=== PATIENT | male | born 1990 | race Caucasian/White ===

== ENCOUNTER 2018-03-19 18:15 | Inpatient (IN) | payer BC ==
[~2018-03-19] VITALS: Ht 180.3 cm; Wt 86.6 kg
[2018-03-19 19:21] LABS: APPEARANCE SL.HAZY ((CLEAR)); BILIRUBIN NEGATIVE; BLOOD NEGATIVE; COLOR YELLOW ((YELLOW)); GLUCOSE (STRIP) NEGATIVE; KETONES NEGATIVE; LEUKOCYTES NEGATIVE; NITRITE NEGATIVE; PROTEIN (STRIP) 30; UROBILINOGEN 0.2 MG/DL (0.2-1.0)
[2018-03-19 19:24] LABS: ALBUMIN 4.4 g/dL (3.2-4.8); CHLORIDE 103 mEq/L (99-109); POTASSIUM 4.6 mEq/L (3.7-5.4); SODIUM 141 mEq/L (136-147)
[2018-03-19 19:26] LABS: PTT 29.5 SEC (25-37)
[2018-03-19 19:27] LABS: GLUCOSE 194 mg/dL (70-99); TOTAL PROTEIN 6.9 g/dL (6.4-8.3)
[2018-03-19 19:28] LABS: AMPHETAMINE NEGATIVE (500 ng/mL); BARBITURATES NEGATIVE (200 ng/mL); BENZODIAZEPINES NEGATIVE (150 ng/mL); BUPRENORPHINE NEGATIVE (10 ng/mL); COCAINE NEGATIVE (150 ng/mL); METHADONE NEGATIVE (200 ng/mL); METHAMPHETAMINE NEGATIVE (500 ng/mL); OPIATES (MORPHINE) PRESUMPTIVE POSITIVE (100 ng/mL); OXYCODONE NEGATIVE (100 ng/mL); PHENCYCLIDINE NEGATIVE (25 ng/mL); PROPOXYPHENE NEGATIVE (300 ng/mL); THC CANNABINOIDS NEGATIVE (50 ng/mL); TRICYCLIC ANTIDEPRESSANTS NEGATIVE (300 ng/mL)
[2018-03-19 19:29] LABS: TOTAL BILIRUBIN 0.5 mg/dL (0.0-1.0)
[2018-03-19 19:30] LABS: ALKALINE PHOSPHATASE 95 IU/L (3-129); CREATININE 2.2 mg/dL (0.6-1.3); GFR ESTIMATE (CALCULATED) 39 mL/min/ (58.99-99999)
[2018-03-19 19:31] LABS: UREA NITROGEN (BUN) 16 mg/dL (9-23)
[2018-03-19 19:32] LABS: AST (GOT) 40 IU/L (2-34)
[2018-03-19 19:33] LABS: ALT (GPT) 26 IU/L (3-49); BASOPHIL (%) 0.5 % (0-1); EOSINOPHIL (%) 0.1 % (0-5); HEMATOCRIT 55.3 % (38.0-50.0); HEMOGLOBIN 18.4 G/DL (12.5-16.6); IMMATURE GRANULOCYTE (%) 0.3 % (0.0-0.7); LYMPHOCYTE (%) 20.8 % (15-42); LYMPHOCYTE COUNT 1.6 K/uL (1.0-2.8); MCH 29.8 PG (29.0-34.0); MCHC 33.3 G/DL (30.0-36.0); MCV 89.6 FL (86-99); MONOCYTE (%) 2.9 % (3-12); MONOCYTE COUNT 0.2 K/uL (0-0.8); NEUTROPHIL (%) 75.4 % (45-76); NEUTROPHIL COUNT 5.7 K/uL (1.8-6.4); PLATELET COUNT 250 K/uL (156-360); RBC DIS.WIDTH-CV 12.1 % (11.8-14.6); RBC DIS.WIDTH-SD 39.7 % (39-53); RED BLOOD COUNT 6.17 M/uL (4.00-5.50); WHITE BLOOD COUNT 7.6 K/uL (4.1-10.2)
[2018-03-19 19:37] LABS: TROP-I INTERPRETATION NEGATIVE; TROPONIN-I 0.07 ng/mL (0.0-0.30)
[2018-03-19 19:58] LABS: BACTERIA NONE SEEN /HPF; EPITHELIAL CELLS RARE /HPF; HYALINE CASTS TNTC /LPF; MUCUS 2+ /LPF; RED BLOOD CELLS 0-5 /HPF (0-5); UCUL ADDED? NO; WHITE BLOOD CELLS 0-5 /HPF (0-5)
[2018-03-19 20:22] LABS: BASE EXCESS -5.5 mEq/L (-3 to +3); BICARBONATE 23.3 mEq/L (22-26); CARBOXY HGB 1.5 % (0-5); COMMENTS - BLOOD GASES A+C+; METHEMOGLOBIN 0.7 % (0-1.5); PCO2 57 mm Hg (35-45); PO2 141 mm Hg (80-100); SITE RR; pH 7.22 (7.35-7.45)
[2018-03-19 20:23] LABS: DEVICE VENT; FI02 100 %; MECHANICAL RATE 16 resp/min; MODE A/C; PEEP 8 CM/H20; TIDAL VOLUME 500 ML; TOTAL RESP RATE 19 resp/min
[2018-03-20] VITALS (26 sets, daily range): BP systolic 91–135; BP diastolic 45–82
[2018-03-20 00:40] LABS: SITE RB
[2018-03-20 00:41] LABS: COMMENTS - BLOOD GASES C
[2018-03-20 00:43] LABS: DEVICE VENT; FI02 100 %; MECHANICAL RATE 22 resp/min; MODE AC; PCO2 50 mm Hg (35-45); PEEP 8 CM/H20; PO2 361 mm Hg (80-100); TIDAL VOLUME 500 ML; TOTAL RESP RATE 23 resp/min; pH 7.26 (7.35-7.45)
[2018-03-20 00:44] LABS: BASE EXCESS -5.2 mEq/L (-3 to +3); BICARBONATE 22.4 mEq/L (22-26); CARBOXY HGB 1.2 % (0-5); METHEMOGLOBIN 1.1 % (0-1.5)
[2018-03-20 02:03] LABS: PCO2 48 mm Hg (35-45)
[2018-03-20 02:04] LABS: PO2 94 mm Hg (80-100)
[2018-03-20 02:05] LABS: BASE EXCESS -3.2 mEq/L (-3 to +3); BICARBONATE 23.6 mEq/L (22-26); CARBOXY HGB 1.6 % (0-5); COMMENTS - BLOOD GASES C+; DEVICE VENT; FI02 60 %; MECHANICAL RATE 25 resp/min; METHEMOGLOBIN 1.5 % (0-1.5); MODE AC; PEEP 8 CM/H20; SITE RB; TIDAL VOLUME 500 ML; TOTAL RESP RATE 27 resp/min
[2018-03-20 05:50] LABS: HEMATOCRIT 40.7 % (38.0-50.0); HEMOGLOBIN 13.9 G/DL (12.5-16.6); MCH 29.9 PG (29.0-34.0); MCHC 34.2 G/DL (30.0-36.0); MCV 87.5 FL (86-99); RBC DIS.WIDTH-CV 12.1 % (11.8-14.6); RBC DIS.WIDTH-SD 39.1 % (39-53); RED BLOOD COUNT 4.65 M/uL (4.00-5.50); WHITE BLOOD COUNT 9.5 K/uL (4.1-10.2)
[2018-03-20 05:58] LABS: CHLORIDE 107 MEQ/L (99-109); SODIUM 138 MEQ/L (136-147); UREA NITROGEN (BUN) 15 mg/dL (9-23)
[2018-03-20 06:06] LABS: CREATININE 1.2 MG/DL (0.6-1.3); GFR ESTIMATE (CALCULATED) > 59 mL/min/ (58.99-99999); GLUCOSE 107 mg/dL (70-99); POTASSIUM 5.7 MEQ/L (3.7-5.4)
[2018-03-20 07:30] LABS: PLAT.SUFFICIENCY ADEQUATE
[2018-03-20 13:25] LABS: PLATELET COUNT 145 K/uL (156-360)
[2018-03-21] VITALS (20 sets, daily range): BP systolic 97–148; BP diastolic 42–88
[2018-03-22 00:14] VITALS: BP 135/71
[2018-03-22 03:36] VITALS: BP 144/71; BP 156/70
[2018-03-22 07:11] LABS: BASOPHIL (%) 0.2 % (0-1); EOSINOPHIL (%) 1.7 % (0-5); EOSINOPHIL COUNT 0.2 K/uL (0-0.3); HEMATOCRIT 36.9 % (38.0-50.0); HEMOGLOBIN 12.6 G/DL (12.5-16.6); IMMATURE GRANULOCYTE (%) 0.3 % (0.0-0.7); LYMPHOCYTE (%) 11.9 % (15-42); LYMPHOCYTE COUNT 1.2 K/uL (1.0-2.8); MCH 29.7 PG (29.0-34.0); MCHC 34.1 G/DL (30.0-36.0); MONOCYTE (%) 5.6 % (3-12); MONOCYTE COUNT 0.5 K/uL (0-0.8); NEUTROPHIL (%) 80.3 % (45-76); NEUTROPHIL COUNT 7.7 K/uL (1.8-6.4); PLATELET COUNT 138 K/uL (156-360); RBC DIS.WIDTH-CV 12.2 % (11.8-14.6); RED BLOOD COUNT 4.24 M/uL (4.00-5.50); WHITE BLOOD COUNT 9.6 K/uL (4.1-10.2)
[2018-03-22 07:31] VITALS: BP 146/71
[2018-03-22 07:31] LABS: CHLORIDE 110 MEQ/L (99-109); CREATININE 0.8 MG/DL (0.6-1.3); GFR ESTIMATE (CALCULATED) > 59 mL/min/ (58.99-99999); GLUCOSE 100 mg/dL (70-99); SODIUM 144 MEQ/L (136-147); UREA NITROGEN (BUN) 11 mg/dL (9-23)
[2018-03-22 07:33] LABS: POTASSIUM 3.8 MEQ/L (3.7-5.4)
[2018-03-22 15:27] VITALS: BP 163/67
[2018-03-23 00:06] VITALS: BP 137/69
[2018-03-23 06:31] LABS: HEMATOCRIT 38.4 % (38.0-50.0); HEMOGLOBIN 12.9 G/DL (12.5-16.6); MCH 28.8 PG (29.0-34.0); MCHC 33.6 G/DL (30.0-36.0); MCV 85.7 FL (86-99); PLATELET COUNT 171 K/uL (156-360); RBC DIS.WIDTH-CV 12.1 % (11.8-14.6); RBC DIS.WIDTH-SD 38.1 % (39-53); RED BLOOD COUNT 4.48 M/uL (4.00-5.50); WHITE BLOOD COUNT 5.6 K/uL (4.1-10.2)
[2018-03-23 06:54] LABS: CHLORIDE 108 MEQ/L (99-109); CREATININE 0.9 MG/DL (0.6-1.3); GFR ESTIMATE (CALCULATED) > 59 mL/min/ (58.99-99999); GLUCOSE 95 mg/dL (70-99); POTASSIUM 3.7 MEQ/L (3.7-5.4); SODIUM 142 MEQ/L (136-147); UREA NITROGEN (BUN) 12 mg/dL (9-23)
[2018-03-23 07:30] VITALS: BP 137/89
[2018-03-23] MEDS ORDERED: AMOX TR-K CLV1 EAC4 PO (12:46)
== END 2018-03-23 13:29 | disposition home or self-care (01) | DRG 917 ==
LOC: EME 18:15 → ENRESERV 19:54 → 4WEST 19:59 → EDOF 19:59 → ENRESERV 20:36 → 4WEST 03-20 01:07 → ENRESERV 03-21 20:18 → 5SOUTH 03-21 21:55
PROVIDERS: Emergency Medicine Emergency Medical Services; Internal Medicine; Internal Medicine Critical Care Medicine; Surgery
PROC: 0BH17EZ Insertion of Endotracheal Airway into Trachea, Via Natural or Artificial Opening (ICD-10-PCS; principal; 2018-03-19)
PROC: 5A1945Z Respiratory Ventilation, 24-96 Consecutive Hours (ICD-10-PCS; principal; 2018-03-19)
DX: T40.1X1A Poisoning by heroin, accidental (unintentional), initial encounter (principal); J96.01 Acute respiratory failure with hypoxia; R57.9 Shock, unspecified; N17.9 Acute kidney failure, unspecified; R78.81 Bacteremia; J69.0 Pneumonitis due to inhalation of food and vomit; F43.21 Adjustment disorder with depressed mood; T40.2X1A Poisoning by other opioids, accidental (unintentional), initial encounter; T40.602A Poisoning by unspecified narcotics, intentional self-harm, initial encounter; E87.4 Mixed disorder of acid-base balance; S93.401A Sprain of unspecified ligament of right ankle, initial encounter; B95.5 Unspecified streptococcus as the cause of diseases classified elsewhere
CPT/HCPCS: 36600; 70450; 71045; 73610; 80048; 80053; 81003; 82803; 83605; 84484; 84999; 85025; 85027; 85610; 85730; 86850; 86900; 86901; 87040; 87070; 87205; 87641; 87801; 93005; 93306; 94002; 94003; 94640; 94640 76; 94644; 94799; 99202; 99281; 99285; J0295; J0696; J1644; J1956; J2060; J2250; J2310; J2704; J3010; J7030; J7040; J7050; S0028